=== PATIENT | female | born 1980 | race Caucasian/White ===

== ENCOUNTER 2016-10-16 18:41 | Emergency (ER) | payer MEDICAID ==
[~2016-10-16] VITALS: Ht 165.1 cm; Wt 58.0 kg
[~2016-10-16 18:41] MED LIST: ANAP550T PO; LABE200T2 PO; PERI8.6T PO; VENL100T PO
[2016-10-16 18:47] VITALS: BP 126/88; PULSE 75; RESP 16; TEMP 98.2; O2SAT 98
[2016-10-16] MEDS ORDERED: SODIUM CHLOR 0.9% 1000 ML INJ 1,000 ML IV ONE (19:00)
[2016-10-16] MEDS ORDERED: EFFE150C PO (19:43)
[2016-10-16] MEDS ORDERED: LISI10TA3 PO (19:43)
[2016-10-16 19:59] VITALS: BP 116/72; PULSE 61; RESP 16; O2SAT 98
--- NOTE | 2016-10-16 20:46 | PD ---
HPI Chief Complaint: General Weakness Time Seen by Provider: 18:51 Travel History International Travel<30 days: No Contact w/Intl Traveler<30days: No Traveled to known affect area: No History of Present Illness HPI Patient is a 36-year-old female who comes in with complaints of "feeling like she's dreaming." She says that this is been going on for 4 days. She says last time this happened she was told she was dehydrated. She says she was seen at a hospital at that time in [place]. She denies any other symptoms. She has not had fever or chills. She denies any pains. She denies any nausea or vomiting or diarrhea. She is drinking fluids. PFSH Past Medical History Hx Anticoagulant Therapy: No Depression: Yes Cardiovascular Problems: Yes (HTN) Diabetes: No Hypertension: Yes Integumentary: Yes (CYST ABOVE L EYE REMOVED ) Tetanus Vaccination: < 5 Years Influenza Vaccination: No ?: Not : 4 Para: 2 Miscarriage: 1 : 1 Social History Alcohol Use: No Tobacco Use: Yes (/ pper day) Substance Use: No (iv drug abuse in past) Allergies-Medications (Allergen,Severity, Reaction): Coded Allergies: No Known Allergies (Unverified , 11/04/13) Reported Meds & Prescriptions Reported Meds & Active Scripts Active Reported Lisinopril 10 Mg Tab 10 Mg PO DAILY Effexor XR 24 HR (Venlafaxine HCl) 150 Mg Cap 150 Mg PO DAILY Review of Systems Except as stated in HPI: all other systems reviewed are Neg General / Constitutional: No: Fever, Chills Eyes: No: Blurred Vision HENT: No: Headaches, Lightheadedness Cardiovascular: No: Chest Pain or Discomfort Respiratory: No: Shortness of Breath Gastrointestinal: No: Nausea, Vomiting Musculoskeletal: No: Myalgias, Edema Skin: No Rash, No Change in Pigmentation Neurologic: Positive: Weakness Physical Exam Narrative GENERAL: Awake and alert, in no acute distress. SKIN: Focused skin assessment warm/dry. Several scars over both arms from previous drug abuse. HEAD: Atraumatic. Normocephalic. EYES: Pupils equal and round. No scleral icterus. ENT: Mucous membranes pink and moist. NECK: Trachea midline. No JVD. CARDIOVASCULAR: Regular rate and rhythm. No murmur appreciated. RESPIRATORY: No accessory muscle use. Clear to auscultation. Breath sounds equal bilaterally. GASTROINTESTINAL: Abdomen soft, non-tender, nondistended. MUSCULOSKELETAL: No obvious deformities. No clubbing. No cyanosis. No edema. NEUROLOGICAL: Awake and alert. No obvious cranial nerve deficits. Motor grossly within normal limits. Normal speech. PSYCHIATRIC: Appropriate mood and affect; insight and judgment normal. Data Data Last Documented VS Vital Signs Date Time Temp Pulse Resp B/P Pulse Ox O2 Delivery O2 Flow Rate FiO2 10/16/16 19:59 61 16 116/72 98 Room Air 10/16/16 18:47 98.2 Orders Complete Blood Count With Diff (10/16/16 18:55) Comprehensive Metabolic Panel (10/16/16 18:55) Urinalysis - C+S If Indicated (10/16/16 18:55) Ed Urine Pregnancytest Poc (10/16/16 18:55) Iv Access Insert/Monitor (10/16/16 18:55) Sodium Chlor 0.9% 1000 Ml Inj (Ns 1000 M (10/16/16 19:00) MDM Medical Decision Making Medical Screen Exam Complete: Yes Emergency Medical Condition: Yes Differential Diagnosis Dehydration versus anemia versus electrolyte abnormality Narrative Course Patient is a 36-year-old female who comes in complaining of "feeling dreamy." Exam shows no acute abnormalities, patient has no specific complaints. Patient has history of IV drug abuse, she says she has not used in years, however her veins are very scarred. Multiple attempts made to obtain an IV were unsuccessful. As we continued to trying to get blood for testing as well as an IV to give IV fluids, patient became frustrated and said she was leaving. I tried to explain to her that I am trying to help her, but she said that she was done and she was sleeping. She got up and walked out. She was alert and oriented 4. Her vital signs are stable. Patient left before evaluation could be completed. Disposition: 07 AGAINST MEDICAL ADVICE Condition: Stable Mary Carmen Hess MD Oct 16, 2016 20:46
== END 2016-10-16 20:43 | disposition left against medical advice (07) ==
LOC: PHED 18:41
DX: R53.1 Weakness (principal); I10 Essential (primary) hypertension; F17.210 Nicotine dependence, cigarettes, uncomplicated
CPT/HCPCS: 99281